=== PATIENT | male | born 1945 | race Caucasian/White ===

== ENCOUNTER 2025-03-09 13:33 | Inpatient (IN) | payer MEDICARE, OTHER, SELFPAY ==
[2025-03-09] VITALS (74 sets, daily range): BP systolic 72–140; BP diastolic 45–106; PULSE 2; BMI 34.7
--- NOTE | 2025-03-09 07:00 | ED.GENMED ---
History of Present Illness
<Maria D Wilson PA-C - Last Filed: 03/09/25 15:28>
General
Chief Complaint: Fever
Source: patient and ambulance crew
Exam Limitations: clinical condition
Time Seen by Provider: 03/09/25 06:58
Nursing documentation reviewed up to this point in time: agreed with
History of Present Illness
History of Present Illness:
pt is a 79 y/o M
h/o HTN, CHF not on lasix, HLD, cad
MELANIE
recent laminectomy for L3/L4 spinal stenosis 03/02/25
here for ams, ems called by
the dispatch was suspected overdose or intolerance to oxycodone/baclofen rx which pt was discharged home on for pain
but there was also a suspicion of fever for 2 days and pt was generally weak and this morning slid to the ground on his knees and was too weak to get up
for EMS pt was on his knees, disoriented, lethargic, genrally weak, not really following all commands; temporal temp was 105
pt was given 650 mg tylenol and put on 4L o2 for sat 88% on RA, pt doesn't normally need o2
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
he has not had any known focal weakness, severe back pain
family is not here currently but according to ems pt's was poor historian and quite anxiuos this morning
Past History
<Maria D Wilson PA-C - Last Filed: 03/09/25 15:28>
Past History
ED Past Medical History: CHF, HTN, Hypercholesterolemia and Other (MELANIE, BPH)
ED Past Surgical History: Orthopedic (laminectomy L3/L4 HUP 03/02/25)
Social History
Tobacco: Non-smoker
Review of Systems
<Maria D Wilson PA-C - Last Filed: 03/09/25 15:28>
Review of Systems
Allergies reviewed?: No
Unable to obtain full review of systems at this time due to: due to acuity
Other source history: ambulance crew
Phy Exam
<ELSA Yoon Last Filed: 03/09/25 15:28>
Physical Exam
Physical Exam:
GENERAL:awake, alert, generally disoriented; following some commands, not consistently
HEAD: NCAT
EYE: pupils equal and reactive, no nystagmus, minimal photophobia
NECK: Supple,full rom, nontender
ENT: o/p clr, mmm.
CARDIAC: Regular rate and rhythm . no edema
LUNGS: tachypneic; Clear breath sounds bilaterally, no acute respiratory distress, no wheezes/rales/rhonchi
ABDOMEN: Soft, without focal tenderness, no r/g, no cvat
rectal: difficult to obtain rectal tone testing due to pt's disorientation
NEUROLOGICAL: Alert and orientedx 1, cn intact, no facial asymmetry,generally weak, sensation intact,moving extremities; difficulty following some commands; seems disoriented
SKIN: Warm and dry, skin intact.
lumbar incision with evelin in place; minimal erythema around the incision site; no tenderness; no fluctuance
MUSCULOSKELETAL: No edema, well perfused.
PSYCH: Normal and appropriate interaction.
Sepsis
<ELSA Yoon Last Filed: 03/09/25 15:28>
Sepsis Screening
Sepsis Assessment: Septic Shock
Sepsis Screening: Lactate >2mmol/L, Hypotension and Worsening O2 Saturation
Sepsis Screen
Sepsis Screen: Septic Shock
Date: 03/09/25
Time: 12:30
Course
<ELSA Yoon Last Filed: 03/09/25 15:28>
Orders/Labs/Results
Orders:
Orders
03/09/25 06:47
Electrocardiogram (*1) Urgent
Reason for Study: Other
Other Reason for Exam: Possible Sepsis
Cardiac Monitoring- Treatment ONCE
IV Insert/Care/Rem.- Treatment PRN
Straight cath- Treatment ONCE
O2 Therapy [RESP] Urgent
Titrate/Wean O2 to maintain O2 sat greater than (%): 93
Special Instructions: TO MAINTAIN CONTINUOUS O2 SATS > OR = 93%
Pulse Ox/cont/shift [RESP] Urgent
Quantity: 1
Special Instructions: CONTINUOUS
03/09/25 06:48
EKG- Treatment ONCE
03/09/25 06:49
Complete Blood Count/With Diff Urgent
Glycohemoglobin (HgbA1c) Urgent
Lactic Acid Q4H
Comment: ON ICE, CANCEL 2ND ORDER IF FIRST LACTIC ACID LEVEL <2
Blood Culture Q20M
GASPER Source: Blood/Venous
Specimen Description:
Comment: Urgent from separate sites. If patient screens positive for possible sepsis
03/09/25 06:59
0.9% Sodium Chloride 1000 ml [Nss] 1,000 ml IV BOLUS
CR Chest Portable - 1 View Urgent
Comment:
Reason For Exam: fever, hypoxic
Reason Study Needs to be Portable: Other
03/09/25 07:00
Bladder Scan- Treatment ONCE
03/09/25 07:01
COVID-19 Antigen Urgent
Source: Nasal Swab
Influenza A+B Rapid Molecular Urgent
GSAPER Source: Nasal Swab
Specimen Description:
03/09/25 07:06
Urinalysis Reflex To Culture Urgent
Date Specimen was Collected: 03/09/25
Time Specimen was Collected: 06:48
Urine Microscopic Reflex Cult Urgent
03/09/25 07:07
Acetaminophen [Tylenol] 325 mg .ROUTE .STK-MED ONE
03/09/25 07:12
Acetaminophen [Tylenol] 325 mg PO NOW STA
03/09/25 07:14
Straight cath- Treatment ONCE
Piperacillin/Tazo 3.375 Gram [Zosyn] 3.375 gram in 50 ml IV NOW
03/09/25 07:16
Comprehensive Metabolic Panel Urgent
Lipase Urgent
Comment: LIPASE ADDED ON BY FLOOR 9:15AM 03-09-25
Blood Culture Q20M
GASPER Source: Blood/Venous
Specimen Description:
Comment: Urgent from separate sites. If patient screens positive for possible sepsis
03/09/25 07:27
Acetaminophen 1000MG/100Ml [Ofirmev] 1,000 mg in 100 ml .ROUTE .STK-MED
03/09/25 07:29
0.9% Sodium Chloride 1000 ml [Nss] 1,000 ml IV NOW STA
03/09/25 07:30
Acetaminophen 10 mg/ml [Ofirmev] 500 mg Pharmacy To Prepare [Call Pharmacy To Prepare] 0 ml IV ONCE
Acetaminophen IV Indication:: ED Narcotic Naive Pt-ONCE
03/09/25 07:34
Electrocardiogram (*1) Urgent
Reason for Study: Tachycardia
EKG- Treatment ONCE
03/09/25 07:37
Vancomycin [Vancocin] 2,000 mg 0.9% Sodium Chloride 500 ml [Nss] 500 ml IV NOW
03/09/25 07:56
CT Chest/abd/pel w/wo IV Cont Urgent
Comment:
Reason For Exam: fever, no source, recent lumbar surgery
03/09/25 09:14
Add On- LAB Urgent
Tests Added?: lipase
03/09/25 Lunch
Cholesterol Lowering
At Your Request: Full Participation
Cholesterol Lowering: Sodium, 2 Gram
03/09/25 10:59
Carreon Catheter [Catheter- Indwelling] As Directed
Reason for insertion: Acute Retention
Discontinue Date/Time: 03/12/25 0600
03/09/25 11:00
Lactic Acid Q4H
Comment: ON ICE, CANCEL 2ND ORDER IF FIRST LACTIC ACID LEVEL <2
03/09/25 11:33
Acetaminophen [Tylenol] 1,000 mg PO NOW STA
03/09/25 12:17
NORepinephrine 4 MG/250 ML [Levophed] 4 mg in 250 ml .ROUTE .STK-MED
03/09/25 12:26
Lactic Acid Urgent
NT-proBNP Urgent
Troponin I Urgent
03/09/25 12:35
MR Lumbar W/o & With Contrast Stat
Comment:
Reason For Exam: fever recent lumbar surgery; stat MRI
Recent pill cam endoscopy?: Yes
03/09/25 12:38
Admit/Transfer Patient As Directed
Co-Sign Provider:
Level of Care: Inpatient admission
Assign to:: ICU
Physician / Group: Hospitalist
Diagnosis: Fever
Reason for Hospitalization: fever
Expected length of stay greater than two midnights?: Yes
ELOS- Estimated Length of Stay in days: 4
I certify the patient meets the requirements for IP care: Yes
NORepinephrine 4 MG/250 ML [Levophed] 4 mg in 250 ml IV NOW
Initial dose in mcg/min, then titrate:: 2
Titrate to keep:: MAP > 65 mmHg
Titrate by mcg/min:: 1-2
Frequency of titrations (minutes):: 5
Maximum dose in ICU in mcg/min:: 30
Maximum dose in IMU in mcg/min:: 8
Maximum dose in IVU in mcg/min:: 4
Begin to taper infusion when:: Remained at goal for 4hrs
Taper by mcg/min:: 1-2 mcg/min
Frequency of taper (minutes) if patient maintains goal:: 30
Taper to off?: Yes
If infusion off & no longer maintaining goal:: Contact Provider
PRN Pain Medication Management As Directed
May give lesser potent ordered pain med per pt: Yes
preference::
Protocol:: Medication orders for pain may be administered in a
manner that supports deferring to patient preference
when the pt is:
- Requesting an ordered lesser potent pain medication.
Least to most potent pain medications are defined
as: acetaminophen < NSAID < tramadol < opioids
(morphine, oxycodone, hydromorphone).
- Requesting a lesser dose of the same medication IF
ORDERED.
- Requesting a less intrusive route of administration
if both routes are prescribed by the provider (PO <
IV).
03/09/25 13:07
0.9% Sodium Chloride 1000 ml [Nss] 1,000 ml IV BOLUS
03/09/25 13:20
Wound Culture [Wound/Abscess/Other Culture] Routine
GASPER Source: Suture Site
Specimen Description:
Date Specimen was Collected: 03/09/25
Time Specimen was Collected: 13:18
Comment: clean well with saline and get cultures from the exudate
03/09/25 13:22
Code Status As Directed
Resuscitation Status: Full Code
03/09/25 15:18
Acetaminophen [Tylenol] 500 mg PO Q6HPRN PRN
Aspirin Low Dose EC [Aspir Low (Enteric Coated)] 81 mg PO DAILY
Baclofen [Lioresal] 10 mg PO Q6HPRN PRN
Bisacodyl [Dulcolax] 10 mg RECTAL [id number] PRN
Cefepime HCl [Maxipime] 1,000 mg IV Q8H
Docusate W/Senna [Senokot-S] 1 tablet PO BIDPRN PRN
Lactated Ringers [Lr] 1,000 ml IV 100 mls/hr
Oxycodone [Roxicodone] 5 mg PO Q4HPRN PRN
Polyethylene Glycol Powder [Miralax] 17 grams PO DAILYPRN PRN
VANCOMYCIN Pharmacy to Dose [VANCOCIN Pharmacy to Dose] 1 each Pharmacy To Prepare [Call Pharmacy To Prepare] 0 ml IV PER PROTOCOL
03/09/25 15:18
INFECTIOUS DISEASE CONSULT Routine
Consulting Provider: Polly Tee
Was physician already notified: Yes
Restaurant Inspector Consult Routine
Consulting Provider: Jony Rock
Was physician already notified: Yes
Reason for consult: ICU admission
NEUROLOGY CONSULT Routine
Consulting Provider: Carmine Perez
Was physician already notified: Yes
Activity As Directed
Activity Level: As Tolerated
Pneumatic Compression Sleeves As Directed
Type: Knee high
Sequential Compression Device [Pneumatic Compression Sleeves] As Directed
Type: Knee high
Vital Signs As Directed
Frequency: Per unit guidelines
DX Deep Vein Thrombosis Video Routine
DX Deep Vein Thrombosis Video Routine
03/09/25 18:00
Tamsulosin [Flomax] 0.4 mg PO QPM
03/09/25 22:00
bimatoprost [Lumigan] 1 drop BOTH EYES HS
03/10/25 06:00
Basic Metabolic Panel IN AM
Complete Blood Count/No Diff IN AM
03/10/25 08:00
Cholecalciferol (Vitamin D3) [VITAMIN D3 (cholecalciferol)] 25 mcg PO DAILY
Ezetimibe [Zetia] 10 mg PO DAILY
Polyethylene Glycol Powder [Miralax] 17 grams PO DAILY
03/11/25 06:00
Basic Metabolic Panel IN AM
Complete Blood Count/No Diff IN AM
03/12/25 06:00
Basic Metabolic Panel IN AM
Complete Blood Count/No Diff IN AM
03/13/25 06:00
Basic Metabolic Panel IN AM
Complete Blood Count/No Diff IN AM
03/14/25 06:00
Basic Metabolic Panel IN AM
Complete Blood Count/No Diff IN AM
03/15/25 06:00
Basic Metabolic Panel IN AM
Complete Blood Count/No Diff IN AM
03/16/25 06:00
Basic Metabolic Panel IN AM
Complete Blood Count/No Diff IN AM
Abnormal Lab Results
03/09/25 03/09/25 03/09/25
06:49 07:06 07:16
WBC 13.0 H 10^3/uL
(4.8-10.8)
MCH 31.1 H pg
(27.0-31.0)
MPV 10.6 H fL
(7.4-10.4)
Abs Immat Gran (auto) 0.1 H 10^3/uL
(0-0.05)
Absolute Neuts (auto) 11.6 H 10^3/uL
(1.4-6.5)
Absolute Lymphs (auto) 0.5 L 10^3/uL
(1.2-3.4)
Immature Gran % 0.6 H %
(0-0.5)
Neutrophils % 89.2 H %
(42.2-75.2)
Lymphocytes % 4.0 L %
(20.5-51.1)
Glucose 127 H mg/dl
(70-99)
Lactic Acid 3.3 H mmol/L
(0.7-2.0)
Total Bilirubin 1.7 H mg/dl
(0.2-1.3)
Troponin I
Total Protein 6.0 L g/dl
(6.3-8.2)
Albumin 3.4 L g/dl
(3.5-5.0)
Ur Occult Blood Reflex 1+ A
(Negative)
Urine RBC 7-10 A /HPF
(0-2)
Urine Albumin (Reflex) 2+ A
(Neg - Trace)
03/09/25
12:26
WBC
MCH
MPV
Abs Immat Gran (auto)
Absolute Neuts (auto)
Absolute Lymphs (auto)
Immature Gran %
Neutrophils %
Lymphocytes %
Glucose
Lactic Acid 4.0 H* mmol/L
(0.7-2.0)
Total Bilirubin
Troponin I 0.093 H* ng/ml
Total Protein
Albumin
Ur Occult Blood Reflex
Urine RBC
Urine Albumin (Reflex)
03/09/25 06:49
03/09/25 07:16
Vital Signs
Initial and Last Documented VS:
Initial Vital Signs
Temp Pulse Resp Pulse Ox
40.8 C H 144 42 91
03/09/25 06:47 03/09/25 06:47 03/09/25 06:47 03/09/25 06:47
Last Documented Vital Signs
Temp Pulse Resp BP Pulse Ox
39.1 C H 83 27 96/67 98
03/09/25 11:49 03/09/25 15:17 03/09/25 15:17 03/09/25 15:17 03/09/25 15:17
<Rohan Alvarez MD - Last Filed: 03/09/25 10:52>
Orders/Labs/Results
Orders:
Orders
03/09/25 06:47
Electrocardiogram (*1) Urgent
Reason for Study: Other
Other Reason for Exam: Possible Sepsis
Cardiac Monitoring- Treatment ONCE
IV Insert/Care/Rem.- Treatment PRN
Straight cath- Treatment ONCE
O2 Therapy [RESP] Urgent
Titrate/Wean O2 to maintain O2 sat greater than (%): 93
Special Instructions: TO MAINTAIN CONTINUOUS O2 SATS > OR = 93%
Pulse Ox/cont/shift [RESP] Urgent
Quantity: 1
Special Instructions: CONTINUOUS
03/09/25 06:48
EKG- Treatment ONCE
03/09/25 06:49
Complete Blood Count/With Diff Urgent
Glycohemoglobin (HgbA1c) Urgent
Lactic Acid Q4H
Comment: ON ICE, CANCEL 2ND ORDER IF FIRST LACTIC ACID LEVEL <2
Blood Culture Q20M
GASPER Source: Blood/Venous
Specimen Description:
Comment: Urgent from separate sites. If patient screens positive for possible sepsis
03/09/25 06:59
0.9% Sodium Chloride 1000 ml [Nss] 1,000 ml IV BOLUS
CR Chest Portable - 1 View Urgent
Comment:
Reason For Exam: fever, hypoxic
Reason Study Needs to be Portable: Other
03/09/25 07:00
Bladder Scan- Treatment ONCE
03/09/25 07:01
COVID-19 Antigen Urgent
Source: Nasal Swab
Influenza A+B Rapid Molecular Urgent
GASPER Source: Nasal Swab
Specimen Description:
03/09/25 07:06
Urinalysis Reflex To Culture Urgent
Date Specimen was Collected: 03/09/25
Time Specimen was Collected: 06:48
Urine Microscopic Reflex Cult Urgent
03/09/25 07:07
Acetaminophen [Tylenol] 325 mg .ROUTE .STK-MED ONE
03/09/25 07:12
Acetaminophen [Tylenol] 325 mg PO NOW STA
03/09/25 07:14
Straight cath- Treatment ONCE
Piperacillin/Tazo 3.375 Gram [Zosyn] 3.375 gram in 50 ml IV NOW
03/09/25 07:16
Comprehensive Metabolic Panel Urgent
Lipase Urgent
Comment: LIPASE ADDED ON BY FLOOR 9:15AM 03-09-25
Blood Culture Q20M
GASPER Source: Blood/Venous
Specimen Description:
Comment: Urgent from separate sites. If patient screens positive for possible sepsis
03/09/25 07:27
Acetaminophen 1000MG/100Ml [Ofirmev] 1,000 mg in 100 ml .ROUTE .STK-MED
03/09/25 07:29
0.9% Sodium Chloride 1000 ml [Nss] 1,000 ml IV NOW STA
03/09/25 07:30
Acetaminophen 10 mg/ml [Ofirmev] 500 mg Pharmacy To Prepare [Call Pharmacy To Prepare] 0 ml IV ONCE
Acetaminophen IV Indication:: ED Narcotic Naive Pt-ONCE
03/09/25 07:34
Electrocardiogram (*1) Urgent
Reason for Study: Tachycardia
EKG- Treatment ONCE
03/09/25 07:37
Vancomycin [Vancocin] 2,000 mg 0.9% Sodium Chloride 500 ml [Nss] 500 ml IV NOW
03/09/25 07:56
CT Chest/abd/pel w/wo IV Cont Urgent
Comment:
Reason For Exam: fever, no source, recent lumbar surgery
03/09/25 09:14
Add On- LAB Urgent
Tests Added?: lipase
03/09/25 Lunch
Cholesterol Lowering
At Your Request: Full Participation
Cholesterol Lowering: Sodium, 2 Gram
03/09/25 10:59
Carreon Catheter [Catheter- Indwelling] As Directed
Reason for insertion: Acute Retention
Discontinue Date/Time: 03/12/25 0600
03/09/25 11:00
Lactic Acid Q4H
Comment: ON ICE, CANCEL 2ND ORDER IF FIRST LACTIC ACID LEVEL <2
03/09/25 11:33
Acetaminophen [Tylenol] 1,000 mg PO NOW STA
03/09/25 12:17
NORepinephrine 4 MG/250 ML [Levophed] 4 mg in 250 ml .ROUTE .STK-MED
03/09/25 12:26
Lactic Acid Urgent
NT-proBNP Urgent
Troponin I Urgent
03/09/25 12:35
MR Lumbar W/o & With Contrast Stat
Comment:
Reason For Exam: fever recent lumbar surgery; stat MRI
Recent pill cam endoscopy?: Yes
03/09/25 12:38
Admit/Transfer Patient As Directed
Co-Sign Provider:
Level of Care: Inpatient admission
Assign to:: ICU
Physician / Group: Hospitalist
Diagnosis: Fever
Reason for Hospitalization: fever
Expected length of stay greater than two midnights?: Yes
ELOS- Estimated Length of Stay in days: 4
I certify the patient meets the requirements for IP care: Yes
NORepinephrine 4 MG/250 ML [Levophed] 4 mg in 250 ml IV NOW
Initial dose in mcg/min, then titrate:: 2
Titrate to keep:: MAP > 65 mmHg
Titrate by mcg/min:: 1-2
Frequency of titrations (minutes):: 5
Maximum dose in ICU in mcg/min:: 30
Maximum dose in IMU in mcg/min:: 8
Maximum dose in IVU in mcg/min:: 4
Begin to taper infusion when:: Remained at goal for 4hrs
Taper by mcg/min:: 1-2 mcg/min
Frequency of taper (minutes) if patient maintains goal:: 30
Taper to off?: Yes
If infusion off & no longer maintaining goal:: Contact Provider
PRN Pain Medication Management As Directed
May give lesser potent ordered pain med per pt: Yes
preference::
Protocol:: Medication orders for pain may be administered in a
manner that supports deferring to patient preference
when the pt is:
- Requesting an ordered lesser potent pain medication.
Least to most potent pain medications are defined
as: acetaminophen < NSAID < tramadol < opioids
(morphine, oxycodone, hydromorphone).
- Requesting a lesser dose of the same medication IF
ORDERED.
- Requesting a less intrusive route of administration
if both routes are prescribed by the provider (PO <
IV).
03/09/25 13:07
0.9% Sodium Chloride 1000 ml [Nss] 1,000 ml IV BOLUS
03/09/25 13:20
Wound Culture [Wound/Abscess/Other Culture] Routine
GASPER Source: Suture Site
Specimen Description:
Date Specimen was Collected: 03/09/25
Time Specimen was Collected: 13:18
Comment: clean well with saline and get cultures from the exudate
03/09/25 13:22
Code Status As Directed
Resuscitation Status: Full Code
03/09/25 15:18
Acetaminophen [Tylenol] 500 mg PO Q6HPRN PRN
Aspirin Low Dose EC [Aspir Low (Enteric Coated)] 81 mg PO DAILY
Baclofen [Lioresal] 10 mg PO Q6HPRN PRN
Bisacodyl [Dulcolax] 10 mg RECTAL [id number] PRN
Cefepime HCl [Maxipime] 1,000 mg IV Q8H
Docusate W/Senna [Senokot-S] 1 tablet PO BIDPRN PRN
Lactated Ringers [Lr] 1,000 ml IV 100 mls/hr
Oxycodone [Roxicodone] 5 mg PO Q4HPRN PRN
Polyethylene Glycol Powder [Miralax] 17 grams PO DAILYPRN PRN
VANCOMYCIN Pharmacy to Dose [VANCOCIN Pharmacy to Dose] 1 each Pharmacy To Prepare [Call Pharmacy To Prepare] 0 ml IV PER PROTOCOL
03/09/25 15:18
INFECTIOUS DISEASE CONSULT Routine
Consulting Provider: Polly Tee
Was physician already notified: Yes
Restaurant Inspector Consult Routine
Consulting Provider: Jony Rokc
Was physician already notified: Yes
Reason for consult: ICU admission
NEUROLOGY CONSULT Routine
Consulting Provider: Carmine Perez
Was physician already notified: Yes
Activity As Directed
Activity Level: As Tolerated
Pneumatic Compression Sleeves As Directed
Type: Knee high
Sequential Compression Device [Pneumatic Compression Sleeves] As Directed
Type: Knee high
Vital Signs As Directed
Frequency: Per unit guidelines
DX Deep Vein Thrombosis Video Routine
DX Deep Vein Thrombosis Video Routine
03/09/25 18:00
Tamsulosin [Flomax] 0.4 mg PO QPM
03/09/25 22:00
bimatoprost [Lumigan] 1 drop BOTH EYES HS
03/10/25 06:00
Basic Metabolic Panel IN AM
Complete Blood Count/No Diff IN AM
03/10/25 08:00
Cholecalciferol (Vitamin D3) [VITAMIN D3 (cholecalciferol)] 25 mcg PO DAILY
Ezetimibe [Zetia] 10 mg PO DAILY
Polyethylene Glycol Powder [Miralax] 17 grams PO DAILY
03/11/25 06:00
Basic Metabolic Panel IN AM
Complete Blood Count/No Diff IN AM
03/12/25 06:00
Basic Metabolic Panel IN AM
Complete Blood Count/No Diff IN AM
03/13/25 06:00
Basic Metabolic Panel IN AM
Complete Blood Count/No Diff IN AM
03/14/25 06:00
Basic Metabolic Panel IN AM
Complete Blood Count/No Diff IN AM
03/15/25 06:00
Basic Metabolic Panel IN AM
Complete Blood Count/No Diff IN AM
03/16/25 06:00
Basic Metabolic Panel IN AM
Complete Blood Count/No Diff IN AM
Abnormal Lab Results
03/09/25 03/09/25 03/09/25
06:49 07:06 07:16
WBC 13.0 H 10^3/uL
(4.8-10.8)
MCH 31.1 H pg
(27.0-31.0)
MPV 10.6 H fL
(7.4-10.4)
Abs Immat Gran (auto) 0.1 H 10^3/uL
(0-0.05)
Absolute Neuts (auto) 11.6 H 10^3/uL
(1.4-6.5)
Absolute Lymphs (auto) 0.5 L 10^3/uL
(1.2-3.4)
Immature Gran % 0.6 H %
(0-0.5)
Neutrophils % 89.2 H %
(42.2-75.2)
Lymphocytes % 4.0 L %
(20.5-51.1)
Glucose 127 H mg/dl
(70-99)
Lactic Acid 3.3 H mmol/L
(0.7-2.0)
Total Bilirubin 1.7 H mg/dl
(0.2-1.3)
Troponin I
Total Protein 6.0 L g/dl
(6.3-8.2)
Albumin 3.4 L g/dl
(3.5-5.0)
Ur Occult Blood Reflex 1+ A
(Negative)
Urine RBC 7-10 A /HPF
(0-2)
Urine Albumin (Reflex) 2+ A
(Neg - Trace)
03/09/25
12:26
WBC
MCH
MPV
Abs Immat Gran (auto)
Absolute Neuts (auto)
Absolute Lymphs (auto)
Immature Gran %
Neutrophils %
Lymphocytes %
Glucose
Lactic Acid 4.0 H* mmol/L
(0.7-2.0)
Total Bilirubin
Troponin I 0.093 H* ng/ml
Total Protein
Albumin
Ur Occult Blood Reflex
Urine RBC
Urine Albumin (Reflex)
03/09/25 06:49
03/09/25 07:16
Vital Signs
Initial and Last Documented VS:
Initial Vital Signs
Temp Pulse Resp Pulse Ox
40.8 C H 144 42 91
03/09/25 06:47 03/09/25 06:47 03/09/25 06:47 03/09/25 06:47
Last Documented Vital Signs
Temp Pulse Resp BP Pulse Ox
39.1 C H 83 27 96/67 98
03/09/25 11:49 03/09/25 15:17 03/09/25 15:17 03/09/25 15:17 03/09/25 15:17
<Maria D Wilson PA-C - Last Filed: 03/09/25 15:28>
MDM/Problems Addressed
Differential Diagnosis Includes:
sepsis, uti, pneumonia, psinal infection, abscess
MDM/Problems Addressed:
79 y/o M
h/o laminenctomy [address] myers
here with gen weakness, confusion
near fall today
found febrile to 105, tachypneic, tachy, hypoxic, altered
he is movin gextremities, no stroke symptoms and no c/o back pain, abd pain
there is an incision site to the lower back does not appear signfiicantly erythematous
he has some serosanguanous drainage between the lower evelin but the wound is not overly dehisced and does not appear acutely infected
he is moving his legs well and has no sensory deficits; we are not at this point concerned for acute spinal cord compression symptosm but concerned for bacteremia/sepsis which does not have a soruce
unfortunately pt's work up revealed neg flu/covid no signs of pneumonia on cxr and CT indep reviewed by me
lactic acidosis, leukocytosis
mild trop elevation
ekg is abnormal with sinus tachycardia and RBBB with t wave inv
he has no old ekg
During the patient's ED stay he would have periods of brief improvement where he would defervesce, become less tachypneic, less hypoxic, less tachycardic and more alert, several times he had elevation of his heart rate with more agitation and
confusion and thus would be spiking a temperature.
Within the first 2 hours of his visit I reached out to the [facility] neurosurgeon on-call Dr. moise who spoke directly with the patient's surgeon and I was in communication with him throughout the patient's stay. He
agreed with me that we were to attempt to find a source for the fever since the spine incision site looks well and he is not having any spinal cord symptoms. However if the workup did not reveal an obvious source that he would need MRI imaging.
My attending was also involved in this patient's care Dr. Alvarez who reach out to the radiologist once the CT scan was unremarkable for source of infection and requested a stat MRI. It was initially ordered as an urgent MRI but it was known to be
stat, we spoke with the tech and with the radiologist immediately who said that despite it being a stat study that we could not get it done until 5 PM. I reach back out to the neurosurgeon on-call at [facility] to make him
aware of this. He encouraged me to try to get the MRI done sooner however that was not a possibility. I I did speak with the hospital physician Dr. Freeman over at [facility] to try to get the patient transferred there. He felt that the patient did not
need transfer at this time until the MRI was completed. If the MRI did not suggest that the patient needed neurosurgical evaluation that we can treat the patient here. So he thus refused the transfer. Despite several attempts of trying to get the
patient to MRI we are still waiting for that to be done. In the meantime the patient had become rigors, hypotensive, bacteremic looking again with a spike in his temperature and more respiratory distress. He was briefly placed on a nonrebreather
and then BiPAP for just several minutes before he did not tolerate this. He was given Tylenol and more fluids and ultimately he improved significantly however his blood pressure continued to drop into the 70s. He was most comfortable at this time
and more awake and alert and oriented however given his persistent hypotension with a rising lactic acid we started him on Levophed. I updated the neurosurgeon Dr. Promise parsons regarding this change in his status. The patient was admitted to the ICU
here who will assume care
<Maria D Wilson PA-C - Last Filed: 03/09/25 15:28>
*Critical Care Note
Total Time (30-74mins, 75-104mins- exclusive of procedures): 1230 pm
comment:
Critical care statement: A total of 90 minutes of critical care time was provided for this patient. This includes management of unstable vital signs, evaluation of the patient at bedside, reviewing the patient's pertinent medical records, discussion
with consultants, review of old EKGs and review of pertinent medical records. This time with separate from time utilized to perform the aforementioned documented procedures
ED Attending Note
<Maria D Wilson PA-C - Last Filed: 03/09/25 15:28>
-
Portions of this chart may have been created with voice recognition software.� Occasional wrong word or��sound alike� substitutions may have occurred due to the inherent limitations of voice recognition software.
<Rohan Alvarez MD - Last Filed: 03/09/25 10:52>
ED Attending Note
Patient seen and examined by attending physician: Yes
I performed the substantive portion of visit, reviewed & personally made and approve the management plan that is documented in note by myself or JUNIE.: Yes
ED Attending Note:
79-year-old male started with some confusion and weakness last evening. Some difficulty urinating. This morning was more weak more confused. Noted to be hide at home. Given 658 Tylenol at home. Recent spinal surgery at [facility] L3-L4 laminectomy
about a week ago. Has been doing well with this with decreasing pain.
On exam patient is elderly frail moderately ill-appearing. Mildly tachypneic. Temperature 105.4 on arrival. Tachycardic.
Lungs with occasional rhonchi and tachypnea. Heart tachycardic and regular. Abdomen is soft and nontender. Warm and dry.
Good lower extremity strength. Plantar dorsiflexion within normal limits. Light touch intact. Superficial areas of pressure like to the knees over the patella. Lower back incision appears relatively well. There is minimal erythema on the
inferior border. No drainage no abscess no significant surrounding cellulitis
Impression sepsis high fever initial source unknown. Mildly hypoxic. Questionable pneumonia at the left base. Urinalysis unremarkable. Doubt this is directly coming from his spinal surgery although still on the list of possibilities.
Antibiotics sepsis fluids clearly warrants admission. Clinically not meningitic.
0825.... Patient remains essentially unchanged. Alert interacting slightly cognitively off. Pulse ox is 92% on 6 L. Source of infection not clear at this time. CT chest abdomen and pelvis pending. We have discussed with [facility]
[place].
0930.... CT scan reviewed. Cholelithiasis but no acute cholecystitis. Clinically abdomen is soft and nontender LFTs are normal. Not consistent with a fever. No obvious abscess in the back by CT. No other acute findings by CT explain symptoms.
Nonspecific COPD changes in the lung. Patient seen comfortably. Blood pressure stable. Heart rate is down to 110. Pulse ox 92 to 93% on supplemental oxygen. and patient updated. Warrants transfer to [facility] as we find no other obvious
etiology for his symptoms.
1055... Continuous multiple rechecks. Multiple discussions with [facility]. MRI pending. They will not except until they know the MRI shows something neurosurgical. Patient's oxygen saturations remain in the low 90s although he looks a little more
tachypneic. We will try BiPAP before MRI.
Discharge Plan
Departure
Patient Disposition: Admit
Date of Disposition: 03/09/25
Time of Disposition: 12:14
Admit to: ICU
Presentation/result/management discussed w/ accepting MD/DO: Hospitalist
Condition: Serious
Discharge Problem:
Sepsis
Interventions
Interventions:
*Risk Screen - Suicide Last Done: 03/09/25 06:53
*General Assessment Last Done: 03/09/25 06:53
*Neglect/Abuse Screening Last Done: 03/09/25 06:53
*ED- Fall Risk Assessment Last Done: 03/09/25 06:53
*ED COVID-19 Vaccine History Last Done: 03/09/25 06:53
*Nursing Disposition Last Done: 03/09/25 15:19
ED- Neurological Assessment Last Done: 03/09/25 06:53
ED-Skin Assessment Last Done: 03/09/25 07:10
Discharge Date and Time
Discharge Date/Time: 03/09/25 15:20
[2025-03-09 07:05] LABS: % Basophils 0.2 % (0-2); % Eosinophils 2.1 % (0-6); % Immature Granulocytes 0.6 % (0-0.5); % Monocytes 3.9 % (1.7-9.3); % Neutrophils 89.2 % (42.2-75.2); Absolute Eosinophils 0.3 10^3/uL (0-0.7); Absolute Immature Granulocytes 0.1 10^3/uL (0-0.05); Absolute Lymphocytes 0.5 10^3/uL (1.2-3.4); Absolute Monocytes 0.5 10^3/uL (0.1-0.6); Absolute Neutrophils 11.6 10^3/uL (1.4-6.5); Hematocrit 48.8 % (39.0-52.0); Hemoglobin 16.9 g/dL (13.0-18.0); Mean Corp Hgb Conc. 34.6 g/dL (33.0-37.0); Mean Corpuscular Hgb 31.1 pg (27.0-31.0); Mean Corpuscular Volume 89.7 fL (80.0-94.0); Mean Platelet Volume 10.6 fL (7.4-10.4); Nucleated Red Blood Cells % 0 % (-); Platelet Count 263 10^3/uL (130-400); Red Blood Cell Count 5.44 10^6/uL (4.70-6.10); Red Cell Dist. Width 14.1 % (11.5-14.5)
[2025-03-09] MEDS: NSS 1000 IV ×2 (07:08→13:07)
[2025-03-09 07:16] LABS: Lactic Acid 3.3 mmol/L (0.7-2.0)
[2025-03-09] MEDS: ZOSYN 50 IV ×2 (07:27→13:36)
[2025-03-09 07:28] LABS: Urine Albumin 2+ (Neg - Trace); Urine Bilirubin Negative (Negative); Urine Character Clear (Clear); Urine Color Yellow; Urine Glucose Negative (Negative); Urine Ketone Negative (Negative); Urine Leukocyte Negative (Negative); Urine Nitrite Negative (Negative); Urine Occult Blood 1+ (Negative); Urine Specific Gravity 1.005 (<1.030); Urine Urobilinogen Negative (Neg - 1+)
[2025-03-09] MEDS: NSS 1000 ML IV (07:32)
[2025-03-09] MEDS: OFIRMEV 50 MG IV (07:34)
[2025-03-09 07:35] LABS: COVID-19 Antigen Negative (Negative)
[2025-03-09 07:41] LABS: Urine Squamous Cell 0-2 /LPF (Few); Urine White Cell 0-2 /HPF (0-5)
[2025-03-09 07:46] LABS: ALT (SGPT) 50 U/L (0-50); AST (SGOT) 31 U/L (17-59); Albumin 3.4 g/dl (3.5-5.0); Alkaline Phosphatase 68 U/L (38-126); Blood Urea Nitrogen 12 mg/dl (9-20); Calcium 9.2 mg/dl (8.4-10.2); Carbon Dioxide 23 mmol/L (22-30); Chloride 107 mmol/L (98-107); Estimated Creatinine Clearance 91 ml/min; Glucose 127 mg/dl (70-99); Potassium 3.6 mmol/L (3.5-5.1); Sodium 140 mmol/L (135-145); Total Bilirubin 1.7 mg/dl (0.2-1.3); eGFR > 60.00
[2025-03-09] MEDS: VANCOCIN 540 MG IV (08:27)
[2025-03-09 10:49] LABS: Lipase 52 U/L (23-300)
[2025-03-09] MEDS: TYLENOL 1000 MG PO (11:44)
[2025-03-09] MEDS: LEVOPHED 250 IV (12:15)
[2025-03-09 13:14] LABS: NT-proBNP 4500 pg/ml; Troponin I 0.093 ng/ml
--- NOTE | 2025-03-09 14:48 | CON.INTV ---
Consultation
Consultation Request
Date/Time Consultation Requested: 03/09/2025
Date/Time Consultation Performed: 03/09/2025
Reason for Consultation: Septic shock, hypoxia
Medical History
-
Chief Complaint: Fever, back pain
History of Present Illness:
79-year-old male past medical show hypertension, CHF unspecified, hyperlipidemia, CAD, MELANIE not on CPAP with recent L3-L4 laminectomy surgery reportedly on 03/02/2025. Reports that since his surgery he has been endorsing slight numbness and
paresthesias bilaterally, approximately 2 weeks in duration. Also reports that over the last 2 days he has had weakness in the lower extremities, fever starting today. Reportedly he slid to the ground this morning and he was too weak to get up, in
the emergency department he was found to be hypoxic sats reportedly 88, he was started on 4 L nasal cannula, briefly transition to BiPAP and then transition to nonrebreather. Patient does report he is feeling short of breath, Tmax temp oral in the
emergency department was 105. He received Tylenol. Patient was started on Zosyn and vancomycin in the emergency department, blood cultures were ordered and antibiotics were eventually transitioned to cefepime and vancomycin. The neurosurgeon who
performed his operation was contacted by the ED, and infectious disease consult was placed. Patient received a CT chest abdomen pelvis with and without IV contrast as well as chest x-ray in the emergency department. MRI spine ordered and pending.
Reportedly he is a never smoker and his last bowel movement was approximately 2 days ago, reports some constipation. Neurosurgery who performed his laminectomy is Dr. Cruz #[phone]
Past Medical History
Past Medical History: CAD, CHF and HTN
Past Surgical History: Other (Bilateral hip replacement, L3-L4 laminectomy)
Social History
Tobacco: Non-smoker
Living: With Family
Employment: Retired
Allergies / Home Medications
Allergies
Allergy/AdvReac Type Severity Reaction Status Date / Time
No Known Allergies Allergy Unverified 03/09/25 07:03
Home Medications
�Medication �Instructions �Recorded �Confirmed �Last Taken �Type
acetaminophen 500 mg tablet 500 mg PO Q6HPRN PRN mild pain 03/09/25 03/09/25 Unknown History
(Tylenol Extra Strength)
amlodipine 5 mg tablet (Norvasc) 5 mg PO DAILY Blood Pressure 03/09/25 03/09/25 03/08/25 History
aspirin 81 mg tablet,delayed 81 mg PO DAILY Blood Clot 03/09/25 03/09/25 03/08/25 History
release Prevention/Tx
baclofen 10 mg tablet 10 mg PO Q6HPRN PRN muscle spasms 03/09/25 03/09/25 03/08/25 History
bimatoprost 0.01 % eye drops 1 drp BOTH EYES HS Eye Condition 03/09/25 03/09/25 03/08/25 History
(Lumigan)
cholecalciferol (vitamin D3) 25 25 mcg PO DAILY Supplement 03/09/25 03/09/25 Unknown History
mcg (1,000 unit) tablet (Vitamin
D3)
ezetimibe 10 mg tablet (Zetia) 10 mg PO DAILY High Cholesterol 03/09/25 03/09/25 03/08/25 History
metoprolol succinate 50 mg 50 mg PO BID Blood Pressure 03/09/25 03/09/25 03/08/25 History
tablet,extended release 24 hr
(Toprol XL)
oxycodone 5 mg tablet 5 mg PO Q4HPRN PRN severe pain 03/09/25 03/09/25 Unknown History
polyethylene glycol 3350 17 gram 17 g PO DAILYPRN PRN constipation 03/09/25 03/09/25 Unknown History
oral powder packet (Miralax)
tamsulosin 0.4 mg capsule (Flomax) 0.4 mg PO QPM Urinary Issue 03/09/25 03/09/25 03/08/25 History
tramadol 50 mg tablet 50 mg PO Q6HPRN PRN moderate pain 03/09/25 03/09/25 03/08/25 History
Review of Systems
-
History Source: Patient
Constitutional: Fever
Respiratory: Other (Reports no shortness of breath, no pleurisy)
Cardiac: No Symptoms
Abdomen/GI: No Symptoms
: Other (Denies bowel or bladder incontinence, reports some urinary leakage, chronic )
Vitals / Labs / Diagnostic Testing
Vital Signs
Temp Pulse Resp BP Pulse Ox
102.4 F H 88 25 73/59 96
03/09/25 11:49 03/09/25 14:30 03/09/25 14:30 03/09/25 14:25 03/09/25 14:30
Lab Data
03/09/25 06:49
03/09/25 07:16
Microbiology
03/09/25 07:01 Nasal Swab Influenza Types A & B (KOLE) - Final
Negative for Influenza A & B, NAAT
Negative results must be combined with clinical observations
and patient history.
Nucleic Acid Amplification test (NAAT)performed on the
[employer] platform.
Diagnostic Testing:
Physical Exam
-
Cardiovascular: S1/S2 and Regular Rhythm
Respiratory: Clear
GI: Soft, Non Distended and Non Tender
Neurology: Awake, Alert, Oriented and Other (No focal neurologic deficits present on exam. Patient able to raise both legs against gravity.)
Skin: Warm, Dry and Other (No pitting edema)
General: Comfortable
Assessment
-
Assessment:
79 male past medical history of hypertension, CHF, hyperlipidemia, CAD, MELANIE with recent L3-L4 laminectomy presents for weakness, back pain and fever. Found to be hypoxic in the emergency department, with sepsis requiring pressors. Lactic acid
elevated, troponins elevated.
Plan:
#Septic shock
Patient is hypotensive and requiring pressors to maintain adequate MAP
Leukocytosis on admission 13.0, Tmax 102.4, respiratory rate 25
Patient meets SIRS criteria, source has not been identified yet.
Chest x-ray demonstrated no pneumonia, CT chest abdomen pelvis with and without IV contrast did not demonstrate any abscess or pneumonia, no cholecystitis, urinalysis did not show signs of infection and patient has no urinary symptoms
Blood cultures drawn, currently pending
Was initiated on vancomycin and Zosyn in the emergency department, transition to vancomycin and cefepime
Status post IV fluid in emergency department
Based off ABG, patient has been adequately resuscitated with fluids. Discontinue LR
Lactic acid elevated and trending upwards, continue to trend
Infectious disease consult pending
#Back pain
Patient had a recent L3-L4 laminectomy surgery reportedly 03/02/[address] Cruz #[phone]. Emergency department contacted surgeon regarding this patient
Patient has no red flag symptoms on exam or during interview. Denies bowel or bladder incontinence, reports no perineal paresthesias and is able to lift legs against gravity bilaterally
[place] neurosurgery consult placed, currently pending
MRI lumbar with and without contrast stat ordered, currently pending
#Hypoxia
Reportedly patient was hypoxic in the emergency department, subjectively he reports no shortness of breath or pleurisy
Chest x-ray in emergency department demonstrated no pneumonia, repeat chest x-ray did not show any interval change
CT chest abdomen pelvis with and without IV contrast was performed, no large pulmonary saddle embolus seen, exam limited as was not PE protocol
Patient was initially requiring 6 L nasal cannula, briefly transition to BiPAP, then transition to nonrebreather O2 mask
Unsure etiology of hypoxia, could be component of potential fibrotic lung seen on CT
Will check ABG
#Elevated troponins
Troponins elevated in the emergency department, first reading 0.093
Likely type II ME demand mismatch secondary to hypotension and septic shock
Continue to trend every 6 hours troponins
Echocardiogram ordered
Cardiology consulted
DVT prophylaxis: Hold heparin until MRI lumbar rules out subdural hematoma
CODE STATUS: Full code
--- NOTE | 2025-03-09 14:57 | HPS.HSE ---
Family Physician
-
Family Physician: Alexander Rodriguez
Chief Complaint
-
Fever, lower back pain
History of Present Illness
This is a 79-year-old male patient with PMH of HTN, HLD, BPH and underwent recent laminectomy for L3/L4 spinal stenosis on 03/02 who presented to the ER after a fall from sofa at home. History was obtained from both patient and . For the past
few months he has been having worsening increased urinary frequency and last night he was sitting on his sofa and reaching for his urinal when he suddenly fell over onto his front side. The patient also admits to having excruciating back pain that
had started yesterday as well though denies any history of trauma or any extraneous activity with heavy lifting. The tried to help him back up but found it difficult and patient started to become confused and not like himself. They had then
called EMS services and he was found to be very lethargic and to have a high-grade temperature. Upon arrival to hospital, patient was found to have temperature of 105.4. The ER was able to contact neurosurgery at [facility] where
the patient had gotten his surgery done and was recommended to have an MRI at with no need for transfer during that time.
Prior to the fall he used a walker for a few months for ambulation. He denies having any URI symptoms prior to fall, diarrhea, SOB, CP or abdominal pain. The does admit to seeing minor oozing of blood at staple site.
Medical History
Past Medical History
Past Medical History: Reports HTN, Hypercholesterolemia and Other (BPH)
Past Surgical History: Reports Cardiac (CABG) and Orthopedic (Bilateral hip replacement)
Social History
Tobacco: Non-smoker
Alcohol: None
Personal:
Living: With Family
Employment: Retired
Family History
Family History: Not pertinent
Allergies / Home Medications
Allergies reflects when Allergies were last updated in Workspace.
Home Medications with original date entered in Workspace
Allergy/Medication List:
Allergies
Allergy/AdvReac Type Severity Reaction Status Date / Time
No Known Allergies Allergy Unverified 03/09/25 07:03
Home Medications
acetaminophen 500 mg tablet (Tylenol Extra Strength) 500 mg PO Q6HPRN PRN mild pain 03/09/25
amlodipine 5 mg tablet (Norvasc) 5 mg PO DAILY Blood Pressure 03/09/25
aspirin 81 mg tablet,delayed release 81 mg PO DAILY Blood Clot Prevention/Tx 03/09/25
baclofen 10 mg tablet 10 mg PO BIDPRN PRN muscle spasms 03/09/25
bimatoprost 0.01 % eye drops (Lumigan) 1 drp BOTH EYES HS Eye Condition 03/09/25
cholecalciferol (vitamin D3) 25 mcg (1,000 unit) tablet (Vitamin D3) 25 mcg PO DAILY Supplement 03/09/25
ezetimibe 10 mg tablet (Zetia) 10 mg PO DAILY High Cholesterol 03/09/25
metoprolol succinate 50 mg tablet,extended release 24 hr (Toprol XL) 50 mg PO BID Blood Pressure 03/09/25
oxycodone 5 mg tablet 5 mg PO Q4HPRN PRN severe pain 03/09/25
polyethylene glycol 3350 17 gram oral powder packet (Miralax) 17 g PO DAILYPRN PRN constipation 03/09/25
tamsulosin 0.4 mg capsule (Flomax) 0.4 mg PO QPM Urinary Issue 03/09/25
tramadol 50 mg tablet 50 mg PO Q6HPRN PRN moderate pain 03/09/25
Review of Systems
-
A 12 point ROS was completed and negative except as noted: Yes
: Reports Frequency
Physical Exam
Vital Signs
Vital Signs
Temp Pulse Resp BP Pulse Ox
102.4 F H 88 25 73/59 96
03/09/25 11:49 03/09/25 14:30 03/09/25 14:30 03/09/25 14:25 03/09/25 14:30
Physical Exam
General: Fever and Obese
HEENT: NormoCephalic and Anicteric
Respiratory: Clear
Cardiac: S1/S2 and Regular Rhythm
GI: Soft and Non Tender
Musculoskeletal: No Cyanosis, No Edema and Other (Mild bruising at bilateral knees)
Skin: Warm and Dry
Neuro: Awake, Alert, Oriented, No Motor Deficits, Nonfocal/grossly intact and No Sensory Deficits
Psych: Calm
Laboratory Results
-
03/09/25 06:49
03/09/25 07:16
Laboratory Results
Lactic Acid 4.0 mmol/L (0.7-2.0) H* 03/09/25 12:26
Total Bilirubin 1.7 mg/dl (0.2-1.3) H 03/09/25 07:16
AST 31 U/L (17-59) 03/09/25 07:16
ALT 50 U/L (0-50) 03/09/25 07:16
Alkaline Phosphatase 68 U/L (38-126) 03/09/25 07:16
Troponin I 0.093 ng/ml H* 03/09/25 12:26
Lipase 52 U/L (23-300) 03/09/25 07:16
Impression/Plan
-
IMPRESSION: This is a 79-year-old male patient with PMH of HTN, HLD, BPH and underwent recent laminectomy for L3/L4 spinal stenosis on 03/02 who presented to the ER after a fall with lethargy and fever.
PLAN:
#Sepsis with septic shock-?source/ laminectomy L3-L4 for spinal stenosis on 03/02
#Lactic acidosis
- Continue Levophed
- Given dose of Zosyn and Vanco in ER, will transition to Vanco and cefepime
� Wound cultures and blood cultures sent
�Continue IVF, received 3 boluses in ER
� MRI back pending
� CT scan/CXR with no findings suggestive of abscess; cholelithiasis, bilateral renal cysts present
�Follow lactic acid
� ID, neurosurgery and sales representative sales manager consulted
� Discussed with neurosurgery, they recommended for [facility] neurosurgery for further management
# Atrial fibrillation- new onset
-Likely secondary to sepsis
-Echo ordered
-Follow troponin
-Cardiology consulted
# Coronary artery disease
-Continue aspirin, Zetia, hold beta-blockers due to hypotension
# Hyperlipidemia
-continue Zetia
# Hyperlipidemia
-continue Zetia
# BPH
-continue Flomax
# Essential HTN
-hold antihypertensives as patient hypotensive
# Obesity
- Prescribe Zepbound outpatient, he does not take it as per
DVT PPx�SCDs
Full code
--- NOTE | 2025-03-09 15:06 | W.PN.UPDATE ---
Update Note
Progress Note Update
Seen earlier when orders were placed. Late documentation
I personally performed a history and physical exam of the patient and discussed management with the resident. I reviewed the resident's note and agree with the documented findings and plan of care HPI/CC except for changes in my documentation
79-year-old man who had surgery at [facility] by on March 02. Per he has had symptoms of ambulatory dysfunction and was using a walker for the past 4 months which led up to the surgery. Since surgery he was doing so well until yesterday
he was using a walker and ambulating the bathroom on his own. Yesterday out of nowhere he started having back pain. She called visiting nurse and also gave him medicines for pain. As the day progressed he was having more symptoms and also having
frequent urination. They try to use the urinal as he had difficulty ambulating the bathroom secondary to pain. He did not get much sleep last night. Today he was sitting on the couch and was trying to reach out for a urinal and slipped off of the
couch and fell on his knees. She called ambulance to get the patient up but they found that the patient has a fever of 105 and brought to the hospital. ER contacted neurosurgery at [facility] who recommended an MRI and contact
them. They did not feel that there was a need for transfer at that point. Patient was also hypotensive and received boluses of IV fluids and antibiotics in the ER. He was also started on Levophed. When I saw him he was awake alert oriented and
comfortable except for back pain. He denied any dysuria, diarrhea, abdominal pain, chest pain, shortness of breath, any other body aches or pain except for his lower back. He does not have a headache. Reportedly his sutures were supposed to come
off on 03/15/2025. ER-Maria D Wilson discussed with neurosurgery at [facility] who was okay with the patient getting an MRI with the evelin. These are titanium evelin. He can get some ice placed at the site of the evelin for MRI. ( ER Spoke to
neurosurgeon on-call Dr. moise who spoke directly with the patient's surgeon)
On examination patient is awake alert oriented and conversant
Cardiovascular system S1-S2 appreciated-normal
Chest clear to auscultation
Abdomen soft and nontender, no right upper quadrant tenderness
Neuroexam-nonfocal good strength bilateral lower extremities no sensory abnormalities reflexes decreased but present bilaterally
Back wound last 2 staple area-there is minimal bloodstained discharge , mild redness at the site.
Both kneecaps-mild redness noted
CAT scan chest abdomen pelvis with and without IV contrast--soft tissue inflammation of the lower posterior soft tissues but no fluid collection to suggest an abscess. Coarse interstitial markings suggestive of COPD but no focal consolidation to
suggest pneumonia. Cholelithiasis without evidence of cholecystitis. Bilateral renal cyst.
# Sepsis with septic shock
Lactic acidosis secondary to above
Source unclear at this point from CT scan
COVID and influenza negative
Mild oozing at the site of the surgery-check cultures
MRI of the lumbar spine ordered stat-per ER discussion with radiology can be done at 5 PM only.
Okay to get an MRI with titanium evelin per ER discussion with [facility] neurosurgery
Blood cultures have been obtained
Urinalysis with microscopic hematuria but no evidence of UTI
Infectious disease consultation
Neurosurgery referred to [facility] neurosurgery for further management after MRI
Patient was started on Vanco and Zosyn in the ER-switch to Vanco and cefepime while waiting for cultures
Got IV fluid boluses
Continue maintenance IV fluids and pressors as tolerated
Follow lactate levels
# Atrial fibrillation-new onset
Likely secondary to sepsis
Check echo
Follow troponin
Cardiology evaluation
Restart beta-blockers when blood pressure is better recent
# Acute hypoxic respiratory insufficiency-likely secondary to sepsis. CT without any acute changes. No large thromboembolic disease on the CT with IV contrast
# Laminectomy L3-L4 for spinal stenosis on 03/02/2025 at [facility].
# TME likely secondary to sepsis-resolved patient is back to baseline
# Coronary artery disease with history of CABG in the past-details unclear. Continue aspirin, Zetia, hold beta-blockers because of hypotension
# Prostate disease-continue Flomax
# Hypertension-currently hypotensive therefore hold antihypertensives
# Hyperlipidemia will continue Zetia
# Obesity with a BMI of 36-patient was supposed to be on Zepbound. Per he does not take it.
# Glaucoma-continue Lumigan eyedrops
# SCDs for DVT prophylaxis given recent surgery
# Full code
Case discussed with ER in detail
Discussed with at bedside
Discussed with ER nursing
CC time 60 min
Part of this note was created using voice recognition system. Occasional wrong word or��sound alike� substitutions may have inadvertently occurred due to the inherent limitations of voice recognition software. If noted kindly bring it to my
attention for correction.
--- NOTE | 2025-03-09 15:18 | CON.ID ---
Consultation
-
Date/Time Consultation Requested: 03/09/2025 1353
Date/Time Consultation Performed: 03/09/2025 1430
Requesting Provider: Dr. Mejia
Performing Provider: Dr. Dinero
Reason for Consultation: Fever; clinical sepsis
Chief Complaint / Past History
History of Present Illness
Luke Butterfield is an 79-year-old man with a significant past medical history of CHF and HTN being evaluated at the request of Dr. Mejia regarding fever and clinical sepsis. History is obtained from chart review, along with patient interview.
The patient has a recent history of laminectomy on 03/02/2025 performed at [facility]. He reports in the immediate postop period he did well, but EMS was called to the house today after he slid to the ground earlier this morning. According to ER notes
there may have been concern for overdose or intolerance to the oxycodone or baclofen prescription that the patient was discharged on, but the patient also may have had fevers for 2 days prior. He was noted to be generally weak this morning, and
once he slid to the ground on his knees he was too weak to get up. When EMS arrived they found him disoriented and lethargic and not following all commands. Temperature in the field was reported as 105 degrees. The patient was transported
emergently to [facility]. Here admission temperature was found to be 105.4 rectally. Later his temperature came down to 101.1 degrees. He was found to have hypotension and has been started on pressor therapy and admitted to the ICU.
Empiric antibiotics have been started. Infectious Diseases is asked to comment upon further antimicrobial therapy.
Past History
Additional Past Medical History:
CHF
HTN
MELANIE
BPH
Additional Past Surgical History:
L3-4 laminectomy ([facility]; 03/02/2025)
Allergy History:
No Known Allergies Allergy (Unverified 03/09/25 07:03)
Current Antibiotics:
Vancomycin (dosing per pharmacy)
Cefepime
Social History
Tobacco: Smoker
Alcohol: None
Drug: None
Personal:
Living: With Family
Employment: Retired
Review of Systems
Vital Signs
Temp Pulse Resp BP Pulse Ox
102.4 F H 88 25 73/59 96
03/09/25 11:49 03/09/25 14:30 03/09/25 14:30 03/09/25 14:25 03/09/25 14:30
Physical Exam
Physical Exam
Constitutional: Comfortable, Acutely Ill, Non-toxic and Obese
Eyes: No Conjunctival Hemorrhage and Sclera Anicteric
Oral: No Thrush
Cardiovascular: Regular Rate and S1/S2; Negative S3/S4
Pulmonary: Clear; Negative Wheezes, Rales or Rhonchi
Gastrointestinal: Soft, Distended, Normal Bowel Sounds, No Rebound and No Guarding
Genito-Urinary: Carreon and Clear Urine
Extremities: Negative Edema, Cyanosis or Erythema
Wound: Other (Lumbar back wound with evelin in place. Periwound erythema noted. A small amount of serous/serosanguineous drainage noted. No jewel purulence.)
Neurological: Awake and Alert
Psychological: Calm
Lab / Diagnostic Study Results
03/09/25 06:49
03/09/25 07:16
Abs Immat Gran (auto) 0.1 10^3/uL (0-0.05) H 03/09/25 06:49
Absolute Neuts (auto) 11.6 10^3/uL (1.4-6.5) H 03/09/25 06:49
Absolute Lymphs (auto) 0.5 10^3/uL (1.2-3.4) L 03/09/25 06:49
Absolute Monos (auto) 0.5 10^3/uL (0.1-0.6) 03/09/25 06:49
Absolute Basos (auto) 0.0 10^3/uL (0-0.2) 03/09/25 06:49
Immature Gran % 0.6 % (0-0.5) H 03/09/25 06:49
Neutrophils % 89.2 % (42.2-75.2) H 03/09/25 06:49
Lymphocytes % 4.0 % (20.5-51.1) L 03/09/25 06:49
Monocytes % 3.9 % (1.7-9.3) 03/09/25 06:49
Eosinophils % 2.1 % (0-6) 03/09/25 06:49
Basophils % 0.2 % (0-2) 03/09/25 06:49
Lactic Acid 4.0 mmol/L (0.7-2.0) H* 03/09/25 12:26
Ur Squamous Epith Cells 0-2 /LPF (Few) 03/09/25 07:06
Microbiology Results
Micro:
03/09/25 13:20 Wound Culture - Pending
Suture Site Gram Stain - Pending
03/09/25 07:01 Influenza Types A & B (KOLE) - Final
Nasal Swab Negative for Influenza A & B, NAAT
Negative results must be combined with clinical observations
and patient history.
Nucleic Acid Amplification test (NAAT)performed on the
[employer] ID NOW platform.
03/09/25 07:16 Blood Culture - Pending
Blood/Venous
03/09/25 06:49 Blood Culture - Pending
Blood/Venous
Imaging:
03/09/2025 CT chest/abdomen/pelvis: Soft tissue inflammation in the lower posterior soft tissues. No fluid collection to suggest abscess. Coarse interstitial markings suggesting changes of COPD. No focal consolidation to suggest pneumonia.
Cholelithiasis but without evidence of cholecystitis. Please see full dictation for additional detail.
Assessment / Plan
Fever
Leukocytosis
Hypotension
Lactic acidosis
Suspected postop wound infection
Hx L3-4 laminectomy
CHF
HTN
MELANIE
BPH
Recommendations:
Continue with empiric antibiotics. Vancomycin to be dosed per pharmacy
Change cefepime dose to 1 g IV every 6 hours.
A wound culture has been obtained; will await culture data to guide further antimicrobial selection and potential de-escalation. Blood cultures also pending.
Monitor white count and temperature curve.
Local care to the wound bed. Follow clinical appearance and drainage.
Trend lactate
Continue with pressors; keep MAP >= 65
Await MRI
Further recommendations as additional data is returned.
--- NOTE | 2025-03-09 15:24 | PHA.VAN.IN ---
Assessment
- Assessment
Renal Function: Unknown baseline
Maximum Temperature: 105.4
Minimum Temperature: 101.1
Concomitant Antimicrobials: cefepime
AUC Dosing Plan
- Dosing Variables
Dosing Weight (kg): 113.8
Dosing CrCl (ml/min): 91
Vd coefficient (L/kg): 0.6
- Empiric Dosing
Initial / Loading Dose: vancomycin 2000 mg x 1
Maintenance Regimen: vancomycin 1250 mg Q12H
Estimated AUC (mcg*h/mL): 486
Estimated Peak (mcg*h/mL): 29.7
Estimated Trough (mcg/ml): 12.8
Estimated Half Life (H): 8.7
- Monitoring
No levels ordered at this time: consider levels in next few days
Pharmacokinetics Vancomycin I
- -
Patient Age: 79
Patient Sex: Male
Vancomycin Day #: 1
Indication: Other
Requesting Provider: Dr. Britney Moore
Pertinent Antimicrobial Allergies:
nkda
Height / Weight:
Height 5 ft 10 in
Actual Weight 113.8 kg
IBW in k
Adjusted BW in k.3
- Vital Signs / Lab Results
Temp Pulse Resp BP Pulse Ox
102.4 F H 83 27 96/67 98
03/09/25 11:49 03/09/25 15:17 03/09/25 15:17 03/09/25 15:17 03/09/25 15:17
Lab Results - Hematology
03/09/25
06:49
WBC 13.0 H
Lab Results - Chemistry
03/09/25 03/09/25
06:49 07:16
BUN Cancelled 12
Creatinine Cancelled 0.8
Estimated Creat Clear Cancelled 91
Albumin Cancelled 3.4 L
05/07/25 05/07/25
06:49 12:26
Lactic Acid 3.3 H 4.0 H*
Lab Results - Urine
03/09/25
07:06
Urine Nitrite (Reflex) Negative
Leukocyte Esterase Rfl Negative
Urine WBC (Reflex) 0-2
Ur Squamous Epith Cells 0-2
Microbiology Results
03/09/25 07:01 Influenza Types A & B (KOLE) - Final
Nasal Swab Negative for Influenza A & B, NAAT
Negative results must be combined with clinical observations
and patient history.
Nucleic Acid Amplification test (NAAT)performed on the
[employer] NOW platform.
--- NOTE | 2025-03-09 16:00 | PTCARENOTE ---
Rec'd pt at 1520 via bed from the ED. Rec'd pt overall awake alert and oriented- talkative. Speech is clear. Denies dizziness or headache. BRUSH. Denies numbness or tingling. Skin is mcdonough wm and dry. Temp down to 98.8 axillary and 97.9 oral. Mid/lower
back incision with evelin intact- evelin are approximated with oozing of serosang cloudy drainage from the lower end. Tissue around is reddened and warm. L knee with small abrasion. Respirs- pt transitioned on arrival from 15L-100%v NRB to 15L
midflow with sats of 95%. BS are decreased and sl coarse posteriorly. Monitor SR with 1st'avb pr.22. Rates in the 80's . VS as documented. Rec'd pt on Levophed at 3 mcg-infusing via R AC IV site- will titrate to keep MAP >65. + pulses.Tr. LE edema.
ABd is round and soft with + BS. Denies nausea. Carreon intact for pollo urine. Capped ints intact R and L hand-sites wnl. Complete CHG bath given. Repositioned. Labs sent as ordered. Plan of care reviewed with pt and call mcallister in reach. Awaiting MRI.
[2025-03-09 16:05] LABS: B.E. -2.4 mmol/L; HCO3 21.7 mmol/L (21-28); O2 Saturation % 98.2 % (94-98); PCO2 35 mmHg (35-48); PO2 93 mmHg (83-108)
[2025-03-09] MEDS: ASPIR LOW (ENTERIC COATED) 81 MG PO (16:10)
[2025-03-09 16:15] LABS: Magnesium 1.4 mg/dl (1.6-2.3); Phosphorus 3.7 mg/dl (2.5-4.5)
[2025-03-09 16:19] LABS: INR 1.22
[2025-03-09 16:20] LABS: APTT 31.6 Sec (23.4-35.0)
[2025-03-09 16:28] LABS: Troponin I 0.164 ng/ml
--- NOTE | 2025-03-09 16:45 | PTCARENOTE ---
Pt taken to MRI via bed with Levophed infusing at 3 mcg via RAC IV Site. O2 infusing at 15 L midlfow -sats 95%.
--- NOTE | 2025-03-09 16:45 | PTCARENOTE ---
Pt taken currently to MRI via bed with Levophed at 2 mcg infusing via RAC IV site. O2 on at 15L nc
--- NOTE | 2025-03-09 17:02 | CON.CAR ---
Addendum entered and electronically signed by Grover Macdonald MD 03/09/25 18:20:
I discussed the plan with resident MD Dr Martinez. Agree with assessment/plan with additions/changes noted.
79 yo male with recent lumbar laminectomy 03/02, HTN admitted with septic shock. Now in ICU on pressors, Abx. Plan is MRI to evaluate for source of infection. Tele: A fib --> sinus.
We are consulted for A fib with RVR. New in setting of critical illness. Now back in sinus. If recurs, can use IV amiodarone given septic shock, pressors.
CHADS2-VASC = 4. No AC at this time given recent lumbar laminectomy. If A fib recurs, will re-assess.
Original Note:
Consultation
Consultation Request
Date/Time Consultation Requested: 03/09/2025/3:20pm
Date/Time Consultation Performed: 03/09/2025/4:30pm
Requesting Provider: Oscar Valerio MD.
Performing Provider: Grover Macdonald MD.
Reason for Consultation: Afib+RVR
Medical History
-
Chief Complaint: Postop lower back pain, weakness, fever
History of Present Illness:
Brief history taken from patient, rest of history from chart review and speaking with hospitalist resident.
79-year-old male with history of hypertension, CHF, hyperlipidemia, CAD, MELANIE, BPH, and recent lumbar laminectomy at [facility] on 03/02/2025. He was feeling well since his surgery until yesterday when he started to have severe lower back pain and weakness.
He was observed to have fallen to the floor onto his knees while attempting to use a urinal, and was unable to get back up without aid. As symptoms progressed, EMS was called. Per EMS, patient was disoriented lethargic, weak, had difficulty
following commands, and was febrile to 105F by temporal temperature reading. He was given 650mg Tylenol and brought to the ED. On arrival to the ED, rectal temperature was 105.4F, he was hypotensive and required 4L O2 NC.
Past Medical History
Past Medical History: CAD, CHF, HTN, Hypercholesterolemia and Other (MELANIE, BPH,)
Past Surgical History: Other (Lumbar laminectomy)
Social History
Tobacco: Non-Smoker
Alcohol: None
Drug: None
Personal:
Living: With Family
Employment: Retired
Family History
Family History: Reviewed & Not Pertinent
Allergies / Home Medications
Allergy/AdvReac Type Severity Reaction Status Date / Time
No Known Allergies Allergy Unverified 03/09/25 07:03
�Medication �Instructions �Recorded �Confirmed �Type
acetaminophen 500 mg tablet 500 mg PO Q6HPRN PRN mild pain 03/09/25 03/09/25 History
(Tylenol Extra Strength)
amlodipine 5 mg tablet (Norvasc) 5 mg PO DAILY Blood Pressure 03/09/25 03/09/25 History
aspirin 81 mg tablet,delayed 81 mg PO DAILY Blood Clot 03/09/25 03/09/25 History
release Prevention/Tx
baclofen 10 mg tablet 10 mg PO BIDPRN PRN muscle spasms 03/09/25 03/09/25 History
bimatoprost 0.01 % eye drops 1 drp BOTH EYES HS Eye Condition 03/09/25 03/09/25 History
(Lumigan)
cholecalciferol (vitamin D3) 25 25 mcg PO DAILY Supplement 03/09/25 03/09/25 History
mcg (1,000 unit) tablet (Vitamin
D3)
ezetimibe 10 mg tablet (Zetia) 10 mg PO DAILY High Cholesterol 03/09/25 03/09/25 History
metoprolol succinate 50 mg 50 mg PO BID Blood Pressure 03/09/25 03/09/25 History
tablet,extended release 24 hr
(Toprol XL)
oxycodone 5 mg tablet 5 mg PO Q4HPRN PRN severe pain 03/09/25 03/09/25 History
polyethylene glycol 3350 17 gram 17 g PO DAILYPRN PRN constipation 03/09/25 03/09/25 History
oral powder packet (Miralax)
tamsulosin 0.4 mg capsule (Flomax) 0.4 mg PO QPM Urinary Issue 03/09/25 03/09/25 History
tramadol 50 mg tablet 50 mg PO Q6HPRN PRN moderate pain 03/09/25 03/09/25 History
Review of Systems
-
History Source: Patient
Respiratory: Other (no shortness of breath)
Cardiac: Other (no chest pain )
Physical Exam
Vital Signs
Temp Pulse Resp BP Pulse Ox
98.8 F 83 27 96/67 98
03/09/25 15:53 03/09/25 15:17 03/09/25 15:17 03/09/25 15:17 03/09/25 15:17
Lab Results
03/09/25 06:49
03/09/25 07:16
Troponin I 0.164 ng/ml H* D 03/09/25 15:51
Troponin I Cancelled 03/09/25 15:51
Troponin I Cancelled 03/09/25 15:51
Huq-P-Iekywbetsnq Pept 4500 pg/ml 03/09/25 12:26
Physical Exam
General: Well Nourished, No Apparent Distress and Comfortable
Respiratory: Clear (anteriorly)
Cardiac: S1/S2, Regular Rhythm and Peripheral Edema (trace bilateral); Negative Murmur, Rub or JVD (thick neck)
GI: Soft, Non Tender, Non Distended and Normal Bowel Sounds
Musculoskeletal: No Clubbing, No Cyanosis and Edema (trace bilateral LE edema)
Skin: Warm and Dry
Neuro: Awake, Alert and Oriented
Psych: Calm
Impression / Plan
-
79-year-old male with history of hypertension, CHF, hyperlipidemia, CAD, MELANIE, BPH, and recent lumbar laminectomy at [facility] on 03/02/2025, who presents with septic shock. Cardiology was consulted to assess/manage afib with RVR.
Septic shock:
- On pressure support with Levophed, empiric antibiotics, IVF
Afib with RVR:
- Secondary to critical illness. Self-limiting
- Back in sinus rhythm
- Continue to monitor while treated for septic shock
- If recurrent/persistent, will avoid rate control given low blood pressures, and consider rhythm control
- Await echo
Elevated troponin
0.093 -> 0.164
Possibly secondary to septic shock. EKG with no acute ischemia
- Trend trops
[2025-03-09] MEDS: MAGNESIUM OXIDE 1000 MG PO (18:33)
[2025-03-09] MEDS: VANCOCIN 275 MG IV (18:37)
[2025-03-09] MEDS: STERILE WATER FOR INJECTION 10 ML IV (18:38)
[2025-03-09] MEDS: MAXIPIME 1000 MG IV (18:38)
[2025-03-09] MEDS: FLUSH (NSS) 1 FLUSH IV (18:38)
--- NOTE | 2025-03-09 18:40 | PTCARENOTE ---
Returned from MRI at 1820- Awake and alert. Remains on Levophed at 4 mcg- VS as documented. Dinner ordered. Carreon draining pollo urine. O2 remains on at 15 Lmidflow with sats of 95%. Repositioned.
[2025-03-09] MEDS: FLOMAX 0.4 MG PO (19:06)
--- NOTE | 2025-03-09 19:30 | PTCARENOTE ---
Good appetite for dinner- No c/o nausea. Assisted oob to the bsc for a small amt of formed brown stool. Marija care given and pt currently assisted back to bed. Back incision draining bloody-serosang drainage. New silicone border foam placed over
incision. Call mcallister in reach.
--- NOTE | 2025-03-09 20:24 | W.PN.UPDATE ---
Update Note
Progress Note Update
MRI reviewed.
Blood CX now positive as well.
Called [facility] Transfer center initially spoke to Yuki hospitalist , referred to ICU
Spoke to Le Salomon ( MICU welding engineer ), Carlos Babin ( Neuro ICU Manager Field) .
They agreed pt needs to come to [facility], but currently no beds at [facility].
Then TC added Neuro ICU attending at [facility]. They have beds
was also added to the line. He agreed re transfer also to [facility] .
Spoke to ICU staff at and updated.
Spoke to Pt and updated.
Spoke to his on the phone and updated.
All in agreement with transfer
[facility] wants Ambulance transfer once a bed is identified.
I will Hold ASA as he may any procedures.
Neuro checks added.
Per ICU staff pt is similar to how he was earlier, no worsening symptoms.
Also updated .
Time spent over 65 min arranging transfer and documentation.
--- NOTE | 2025-03-09 21:00 | PTCARENOTE ---
Assumed care of pt from dayshift RN. Walking rounds completed. Pt oriented to person/place/time. Appropriate. SR w/ 1st degree HB and occasional PVCs on the tele monitor. HR 80s. BP 100-120s/60-70s. Levo infusing as ordered. Trace LE edema. B/L
radial pulses palpable. B/L DP pulses weak. Pt on 15 L midflow. POX 97%. Lung sounds diminished and coarse. Deep breathing encouraged. Abdomen soft/nontender. +BS. Carreon catheter intact and draining pollo urine. Lower back incision w/ evelin from
laminectomy site w/ serosanguineous drainage. Site blanchable and warm. Dressing applied. COLOR ADVISER aware of drainage. PIV x3 intact. Pt assisted OOB to the commode then repositioned back into bed w/ assist x2. + small BM. See worklist for full nursing
assessment and interventions. Call mcallister within reach.
--- NOTE | 2025-03-09 21:45 | RESPNOTE ---
PT is ordered for his own home CPAP for HS use and doesnt have a machine with him. He was offered one of our machines and refused, he does not use at home either. PT was told if he changed his mind, to let us know.
[2025-03-09] MEDS: XALATAN OPHTHALMIC SOLUTION 1 DROP BOTH EYES (21:58)
--- NOTE | 2025-03-09 23:15 | PTCARENOTE ---
Decision made to transport pt to [facility] for further evaluation of laminectomy site. Pt in agreement. Report called to RN at [facility]. Pt VSS. Levo infusion maintained. Transport team at bedside. Spoke with pt girlfriend about the
transport and location of pt's belongings. Pt transported ~2300.
--- NOTE | 2025-03-09 23:31 | W.PN.UPDATE ---
Update Note
Progress Note Update
MRI positive for fluid collection around surgical site. Decision made by team to transfer patient to [facility]. EMS transport services notified; however, no ground transportation was available till AM. �Concern for patient losing his
available bed. �Sitaution discussed with Doctor Rice. �The decision was made to transfer patient via air.�
[2025-03-10 09:39] LABS: Glycohemoglobin (HgbA1c) 5.5 % (4.0-5.6)
--- NOTE | 2025-03-10 09:39 | W.DCSUMMARY ---
Discharge Summary
Discharge Data
Date of Admission: 03/09/25
Date of Discharge: 03/10/25
-
Pending Results: No
Hospital Course
Discharging Physician : ,
Disposition : [facility]
Primary care physician : Dr.Michael Rodriguez
Principal Discharge diagnosis : Sepsis with septic shock
Chronic Discharge diagnosis : HTN, BPH
Hospital Course : This was a 79 year old male patient who had presented to the ER with back pain and high grade fever. He recently had a laminectomy at [facility] a week ago. With patient febrile, hypotensive and o2 saturation decreasing to 80s in ED, he
was started on empiric antibiotics along with IV fluid resuscitation followed by pressor support. He was also given supplemental oxygen support. Neurosurgery service at [facility] was also contacted by ER to discuss patient as patient had his surgery done
there and was advised to have MRI done prior to any transfer. In view of hypotension, shock need for pressors, he was admitted to ICU. Infectious disease was also consulted and was started on appropriate antibiotics. Blood cultures subsequently were
positive and MRI showed a midline fluid collection in the laminectomy surgical bed and midline posterior paraspinal soft tissues. Upon discussion with [facility] transfer center, patient was then transferred to [facility] on 03/09/25.
Important imaging findings :
03/09 Lumbar MRI: 1. Recent L3/L4 laminectomy with a large 6.9 cm midline fluid collection in the laminectomy surgical bed and midline posterior paraspinal soft tissues. Diagnostic possibilities are (1) an abscess given the history of fever or (2) a
postoperative seroma.
2. Severe edema throughout the posterior paraspinal muscles which could be postoperative edema or infectious myositis.
3. Severe edema throughout the posterior subcutaneous fat of the lower back which could be cellulitis or postoperative edema.
4. Small central disc herniation at L3/L4 containing high T2 signal suggesting that it may be an acute disc herniation containing an annular fissure. Bilateral foraminal disc herniations at L3/L4 causing moderate neural foraminal narrowing on the
right.
5. Mild to moderate central canal stenosis at L4/L5 secondary to a diffuse disc bulge, central and right foraminal disc herniations, and moderate to severe facet joint arthrosis.
6. 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
Discharge Plan
-
Patient Disposition: Acute Care Hospital
Discharge Date and Time
Discharge Date/Time: 03/09/25 23:15
Print Language: FRENCH
== END 2025-03-09 23:15 | disposition short-term general hospital (02) | DRG 871 ==
LOC: ICU 13:33
PROVIDERS: Physician Assistant; Student in an Organized Health Care Education/Training Program; ADMITTING PHYSICIAN Hospitalist; CONSULT PHYSICIAN Internal Medicine; CONSULT PHYSICIAN Student in an Organized Health Care Education/Training Program; EMERGENCY PHYSICIAN Emergency Medicine; FAMILY PHYSICIAN Internal Medicine
DX: A41.9 Sepsis, unspecified organism (principal); R65.21 Severe sepsis with septic shock; L03.312 Cellulitis of back [any part except buttock and flank]; L76.82 Other postprocedural complications of skin and subcutaneous tissue; Y83.8 Other surgical procedures as the cause of abnormal reaction of the patient, or of later complication, without mention of misadventure at the time of the procedure; B95.4 Other streptococcus as the cause of diseases classified elsewhere; M48.061 Spinal stenosis, lumbar region without neurogenic claudication; M47.819 Spondylosis without myelopathy or radiculopathy, site unspecified; E66.9 Obesity, unspecified; Z68.34 Body mass index [BMI] 34.0-34.9, adult
CPT/HCPCS: 36600; 51701; 51702; 51798; 71045; 71270; 72148; 74178; 80053; 81003; 81015; 82805; 83036; 83605; 83690; 83735; 83880; 84100; 84484; 85025; 85610; 85730; 87040; 87070; 87077; 87147; 87205; 87502; 87811; 93005; 94660; 96361; 96365; 96366; 96367; 96375; 99291; 99292; Q9967

== ENCOUNTER 2025-04-25 16:50 | Emergency (ER) | payer MEDICARE, OTHER, SELFPAY ==
[2025-04-25 16:51] VITALS: BP 133/76
[2025-04-25 17:17] LABS: % Basophils 0.2 % (0-2); % Eosinophils 1.8 % (0-6); % Immature Granulocytes 0.6 % (0-0.5); % Monocytes 7.1 % (1.7-9.3); % Neutrophils 79.3 % (42.2-75.2); Absolute Eosinophils 0.1 10^3/uL (0-0.7); Absolute Lymphocytes 0.7 10^3/uL (1.2-3.4); Absolute Monocytes 0.4 10^3/uL (0.1-0.6); Absolute Neutrophils 4.9 10^3/uL (1.4-6.5); Hematocrit 49.6 % (39.0-52.0); Hemoglobin 17.1 g/dL (13.0-18.0); Mean Corp Hgb Conc. 34.5 g/dL (33.0-37.0); Mean Corpuscular Hgb 31.7 pg (27.0-31.0); Mean Corpuscular Volume 91.9 fL (80.0-94.0); Mean Platelet Volume 9.9 fL (7.4-10.4); Nucleated Red Blood Cells % 0 % (-); Platelet Count 129 10^3/uL (130-400); Red Cell Dist. Width 16.5 % (11.5-14.5); White Blood Cell Count 6.2 10^3/uL (4.8-10.8)
[2025-04-25 17:32] LABS: ALT (SGPT) 111 U/L (0-50); AST (SGOT) 40 U/L (17-59); Albumin 3.1 g/dl (3.5-5.0); Alkaline Phosphatase 59 U/L (38-126); Blood Urea Nitrogen 21 mg/dl (9-20); Calcium 8.8 mg/dl (8.4-10.2); Carbon Dioxide 25 mmol/L (22-30); Chloride 111 mmol/L (98-107); Glucose 107 mg/dl (70-99); Potassium 4.1 mmol/L (3.5-5.1); Sodium 140 mmol/L (135-145); Total Bilirubin 0.7 mg/dl (0.2-1.3); Total Protein 5.6 g/dl (6.3-8.2); eGFR > 60.00
[2025-04-25 19:56] LABS: Lipase 140 U/L (23-300)
[2025-04-25] MEDS: LIDOCAINE 4% PATCH 1 PATCH TOPICAL (23:09)
[2025-04-25] MEDS: TYLENOL 1000 MG PO (23:10)
[2025-04-25] MEDS: TORADOL 15 MG IV (23:10)
--- NOTE | 2025-04-26 00:04 | ED.GENMED ---
History of Present Illness
General
Chief Complaint: Musculo-Skeletal Complaint
Source: patient, spouse and previous hospital records (Brief hospitalization March 09 for treatment of acute severe sepsis related to postop lumbar laminectomy infection. Urgently transferred to [facility] where surgery had
been performed 1 week prior.)
Exam Limitations: none
Time Seen by Provider: 04/25/25 22:25
Nursing documentation reviewed up to this point in time: agreed with
History of Present Illness
History of Present Illness:
This is an 79-year-old gentleman who resides at home with his . He has history of chronic low back pain, left leg sciatica and underwent lumbar spine laminectomy March 02 at [facility]. He developed postop wound
infection and was briefly hospitalized here March 09 with onset of severe fever, severe sepsis, bacteremia requiring IV pressors, IV fluids and urgent MRI of the lumbar spine showed postoperative wound infection. He was urgently transferred to
[facility] [employer] worker March 10. Patient states he underwent surgical washout procedure, lengthy course of IV antibiotics which completed just 2 days ago. He was discharged from [facility] to [facility]'s rehab and then discharged to home near 2 weeks ago. He has been receiving home nurse visits but has not been receiving home physical therapy/Occupational Therapy. He chronically ambulates with a walker and admits to continued, worsening low
back pain radiating down his left leg with increased pain with ambulation and feeling of unsteadiness with ambulation, feeling that his legs will give out.
He has not fallen. He has not had a fever. No coughing or shortness of breath. No difficulty moving his bowels or bladder.
He has been taking baclofen for pain. He does note that he was told he can take exercise Tylenol for pain but has not been doing so.
He had a telehealth visit with his surgeon Dr. Dooley 1 week ago. He admits that they did not discuss pain management other than continuing baclofen and as needed Tylenol.
concerned tonight as patient has had progressive difficulty ambulating, has been using urinal more often as he is hesitant to get up and ambulate. When he does so, he is quite unsteady and stops, winces in pain after taking a few steps with
his walker then needing to quickly sit on his rollator seat which has been following behind when he ambulates.
Past History
Past History
ED Past Medical History: CHF, HTN, Hypercholesterolemia and Other (MELANIE, BPH, Lumbar laminectomy March 02, 2025 complicated by postop infection, sepsis requiring washout procedure, 6-week course of IV antibiotics.)
ED Past Surgical History: Orthopedic (laminectomy L3/L4 HUP 03/02/25)
Social History
Tobacco: Non-smoker
Personal:
Living: with family
Employment: Retired
Family History
Family History: Other
Phy Exam
Physical Exam
Physical Exam:
GENERAL: 79-year-old gentleman appears his stated age, awake and alert, appears in mild distress, easily communicative. is accompanying.
EYE: pupils equal and reactive. anicteric
NECK: Supple, nontender, no meningismus, no significant adenopathy.
ENT: oral mucosa is moist. No rhinorrhea.
CARDIAC: Regular rate and rhythm. no murmur.
LUNGS: Clear breath sounds bilaterally, no acute respiratory distress, no wheezes/rales/rhonchi
ABDOMEN: Rotund,Soft, nondistended, without focal tenderness, no r/g, no cvat. normoactive BS.
BACK: No midline bony tenderness. Straight leg raising is negative bilaterally.
NEUROLOGICAL: Alert and oriented x3, no focal neuro deficits. Motor strength is 5/5 bilaterally. Gross sensation is intact.
SKIN: Warm and dry, normal color, skin intact. No rash.
MUSCULOSKELETAL: No C/C/E. peripheral pulses are full and equal b/l. No palpable tenderness.
PSYCH: Normal and appropriate interaction.
Course
Orders/Labs/Results
Orders:
Orders
04/25/25 16:59
Complete Blood Count/With Diff Urgent
Comprehensive Metabolic Panel Urgent
Lipase Urgent
Comment: ADDON
04/25/25 19:18
Add On- LAB Urgent
Tests Added?: lipase
04/25/25 22:53
Acetaminophen [Tylenol] 1,000 mg PO NOW STA
Ketorolac [Toradol] 15 mg IV NOW STA
Lidocaine [Lidocaine 4% Patch] 1 patch TOPICAL NOW STA
Apply Lidocaine patch(s) to:: lower back
04/25/25 22:55
Urinalysis Reflex To Culture Urgent
Date Specimen was Collected: 04/26/25
Time Specimen was Collected: 00:31
04/26/25 00:37
Urine Microscopic Reflex Cult Urgent
04/26/25 01:36
Case Management Consult ONCE
Case Management Consult: VN/Home Care
Requested By:: PHYSICIAN
Comment: acute on chronic LBP. hx Lumbar lami 03/02/25 complicated by post op wound infection/sepsis-IV
antibiotics x 6 weeks which completed 3 days ago. Pt with continued LBP-using walker but
limited ambulation. Requesting home PT/OT evaluation-tx. Pt d/c to home from the ED
Abnormal Lab Results
04/25/25 04/26/25
16:59 00:37
MCH 31.7 H pg
(27.0-31.0)
RDW 16.5 H %
(11.5-14.5)
Plt Count 129 L 10^3/uL
(130-400)
Absolute Lymphs (auto) 0.7 L 10^3/uL
(1.2-3.4)
Immature Gran % 0.6 H %
(0-0.5)
Neutrophils % 79.3 H %
(42.2-75.2)
Lymphocytes % 11.0 L %
(20.5-51.1)
Chloride 111 H mmol/L
(98-107)
BUN 21 H mg/dl
(9-20)
Glucose 107 H mg/dl
(70-99)
ALT 111 H U/L
(0-50)
Total Protein 5.6 L g/dl
(6.3-8.2)
Albumin 3.1 L g/dl
(3.5-5.0)
Urine Albumin (Reflex) 1+ A
(Neg - Trace)
04/25/25 16:59
04/25/25 16:59
Vital Signs
Initial and Last Documented VS:
Initial Vital Signs
Temp Pulse Resp BP Pulse Ox
98.5 F 72 16 133/76 95
04/25/25 16:51 04/25/25 16:51 04/25/25 16:51 04/25/25 16:51 04/25/25 16:51
Last Documented Vital Signs
Temp Pulse Resp BP Pulse Ox
98.5 F 76 23 133/76 93
04/25/25 16:51 04/25/25 23:45 04/25/25 23:45 04/25/25 16:51 04/26/25 00:07
MDM/Problems Addressed
Differential Diagnosis Includes:
Concern for acute exacerbation of chronic low back pain, acute exacerbation of chronic sciatica. Concern for recurrent bacteremia, UTI.
Reassuring that patient has been afebrile and reports no recent fever.
Also reassuring that patient has had no red flags in history nor exam, no saddle anesthesia, no focal weakness, no difficulty moving bowels or bladder.
Clearly has not been utilizing pain medication, has been taking baclofen for muscle spasm but has not really been taking anything for pain.
Labs thus far reassuring with normal white blood cell count. Unremarkable chemistries.
Will check urinalysis.
Will medicate for pain with a dose of Tylenol, Toradol and lidocaine patch.
Will assess effectiveness and will attempt to ambulate with walker.
With, thus far no evidence of infection, no focal neurologic deficits, nothing to suggest acute cord syndrome and no history of falls/trauma, at this point no indication for urgent imaging.
Chronic conditions affecting care: HTN, Neurological disorder (Lumbar disc disease with chronic low back pain left sided sciatica status post laminectomy March 02 with postop infection requiring washout procedure and 6-week course of IV antibiotics)
and Other (History of CHF, hyperlipidemia, BPH)
Acute Exacerbation and/or Progression of Chronic Illness: Neurological disorder (Exacerbation of chronic low back pain)
*Pulse Oximetry
SaO2: 93
Nasal Cannula flow liters per minute: 2
Oxygen Mode of Delivery: Room air
Patient hypoxic: no
*Critical Care Note
Total Time (30-74mins, 75-104mins- exclusive of procedures): Not Applicable
Update Note
Update Note:
01:30
Patient feeling markedly improved after dose of Tylenol, Toradol, lidocaine patch.
Has ambulated with walker to and from the bathroom with steady unaided gait. According to , 'this is the best he is walked in weeks'
He remains concerned that back pain will worsen/return and does admit to staying moderately sedentary at home.
Urinalysis is pending but at this point no indication for acute hospitalization.
Ongoing pain control is jasso and recommend he initiate 2 extra strength Tylenol at least 3 times daily on a regular basis, and will add low-dose meloxicam once daily as well as lidocaine patch to low back 12 hours on/12 hours off.
I also recommend initiation of home physical therapy/Occupational Therapy and will place a consult to case management to assist with this.
ED Attending Note
-
Portions of this chart may have been created with voice recognition software.� Occasional wrong word or��sound alike� substitutions may have occurred due to the inherent limitations of voice recognition software.
Discharge Plan
Departure
Patient Disposition: Home (Routine Discharge)
Date of Disposition: 04/26/25
Time of Disposition: 01:31
Patient with high blood pressure during this ER visit?: No
Condition: Good
Discharge Problem:
Acute exacerbation of chronic low back pain
Instructions: Spinal Stenosis Stretching Exercises, Low back pain - ED discharge instructions
Prescriptions:
New
meloxicam 7.5 mg tablet
7.5 mg PO DAILY Qty: 30 0RF
lidocaine 5 % adhesive patch,medicated
1 patch topical DAILY Qty: 30 0RF
No Action
amlodipine [Norvasc] 5 mg Tablet
5 mg PO DAILY
polyethylene glycol 3350 [Miralax] 17 gram Powder In Packet
17 g PO DAILYPRN PRN (Reason: constipation)
metoprolol succinate [Toprol XL] 50 mg Tablet Extended Release 24 Hr
50 mg PO BID
aspirin 81 mg Tablet,Delayed Release (Dr/Ec)
81 mg PO DAILY
tramadol 50 mg Tablet
50 mg PO Q6HPRN PRN (Reason: moderate pain)
acetaminophen [Tylenol Extra Strength] 500 mg Tablet
500 mg PO Q6HPRN PRN (Reason: mild pain)
tamsulosin [Flomax] 0.4 mg Capsule
0.4 mg PO QPM
baclofen 10 mg Tablet
10 mg PO BIDPRN PRN (Reason: muscle spasms)
oxycodone 5 mg Tablet
5 mg PO Q4HPRN PRN (Reason: severe pain)
ezetimibe [Zetia] 10 mg Tablet
10 mg PO DAILY
cholecalciferol (vitamin D3) [Vitamin D3] 25 mcg (1,000 unit) Tablet
25 mcg PO DAILY
Lumigan 0.01 % Drops
1 drp BOTH EYES HS
Referrals:
Vamsi Kingston MD [Non-Admitting Privileges, Orthopedics] - Call in 1-3 days for appt
UNKNOWN - PT DOES,NOT KNOW [Family Provider]
Activity Restrictions/Additional Instructions:
Continue your current medications including as needed baclofen.
I want you to add Tylenol/acetaminophen 500 mg, taking 2 tablets at least 3 times daily and continue this on a regular basis.
I have added meloxicam, an additional pain medication to be taken once daily as well as lidocaine patch to apply to your lower back for 12 hours/day.
I want you to call your neurosurgeon to schedule a prompt follow-up for further evaluation.
I have placed a consult for case management to assist with initiation of home physical therapy/Occupational Therapy.
Interventions
Interventions:
*Risk Screen - Suicide Last Done: 04/25/25 16:52
*General Assessment Last Done: 04/25/25 22:03
*Neglect/Abuse Screening Last Done: 04/25/25 16:52
*ED- Fall Risk Assessment Last Done: 04/25/25 22:03
*ED COVID-19 Vaccine History Last Done: 04/25/25 22:02
ED-Musculoskeletal Assessment Last Done: 04/25/25 23:23
Discharge Date and Time
Print Language: TURKISH
[2025-04-26 01:05] LABS: Urine Albumin 1+ (Neg - Trace); Urine Bilirubin Negative (Negative); Urine Character Clear (Clear); Urine Color Amber; Urine Glucose Negative (Negative); Urine Ketone Negative (Negative); Urine Leukocyte Negative (Negative); Urine Nitrite Negative (Negative); Urine Occult Blood Negative (Negative); Urine Specific Gravity 1.025 (<1.030); Urine Urobilinogen Negative (Neg - 1+)
[2025-04-26 01:12] LABS: Urine Red Blood Cell None Seen /HPF (0-2)
--- NOTE | 2025-04-26 13:53 | CM ---
Spoke to pt's Sherrie. Per Sherrie, pt was receiving HH services from [facility], SN, PT and OT. Sherrie said they mad their last visit yesterday and the plan had been outpatient therapy but she does not feel he is strong enough yet.
Referral sent to [facility].
== END 2025-04-26 05:08 | disposition home or self-care (01) ==
LOC: EMR 16:50
PROVIDERS: Emergency Medicine; EMERGENCY PHYSICIAN Emergency Medicine
DX: M54.50 Low back pain, unspecified (principal); G89.29 Other chronic pain; I11.0 Hypertensive heart disease with heart failure; I50.9 Heart failure, unspecified; E78.00 Pure hypercholesterolemia, unspecified; G47.33 Obstructive sleep apnea (adult) (pediatric); Z98.890 Other specified postprocedural states
CPT/HCPCS: 96374; 99284; 80053; 81003; 81015; 83690; 85025